=== PATIENT | male | born 1980 | race Caucasian/White ===

== ENCOUNTER 2018-12-25 22:49 | Emergency (ER) | payer MEDICAID, SELFPAY ==
[2018-12-25 22:50] VITALS: BP 164/115; PULSE 80; RESP 18; TEMP 36.8; O2SAT 97; BMI 32.3
--- NOTE | 2018-12-25 22:58 | EKG12_ITS ---
Test Reason : CP Blood Pressure : / mmHG Vent. Rate : 077 BPM Atrial Rate : 077 BPM P-R Int : 186 ms QRS Dur : 084 ms QT Int : 356 ms P-R-T Axes : 041 016 002 degrees QTc Int : 402 ms Normal sinus rhythm with sinus arrhythmia Normal ECG Confirmed by MINNA CHANDLER, LUCY ([id number]), news videotape editor AUGIE BENAVIDES ([id number]) on 12/29/2018 4:45:56 PM Referred By: UNQIUE Confirmed By:LUCY BUITRAGO MD
--- NOTE | 2018-12-25 23:00 | RAD_ITS ---
STUDY: X-RAY CHEST REASON FOR EXAM: Male, 38 years old. Chest pain TECHNIQUE: Single AP portable view of the chest. COMPARISON: None. FINDINGS: The lungs are clear and expanded. There is no demonstrated pleural abnormality. Normal size heart. Normal mediastinum and kenny. Normal visualized pulmonary arteries. Normal visualized aortic arch and descending thoracic aorta. Normal visualized thoracic spine. Normal visualized ribs, clavicles, and shoulders. There is no demonstrated abnormality of the visualized soft tissue structures of the upper abdomen. RAD/Chest 1 View (Portable) IMPRESSION: Normal x-ray examination of the chest. Electronically Signed: Lou Kingsley MD at 23:31 EST , Service support ,
[2018-12-25 23:08] LABS: Absolute Lymphocyte Count 2.67 X10^3/ul (0.83-4.51); Absolute Neutrophil Count 3.7 X10^3/uL (2.0-7.7); Basophil# 0.04 X10^3/uL; Basophil% 0.6 % (0-1); Eosinophil# 0.11 X10^3/uL; Eosinophils% 1.5 % (0-5); Hematocrit 46.5 % (40-54); Hemoglobin 15.6 g/dl (13.0-16.5); Lymphocyte # 2.67 X10^3/ul (4.0); Lymphocyte % 37.6 % (19-41); Mean Corp Hgb Conc 33.5 g/gl (32-36); Mean Corpuscular Hgb 27.3 pg (27.0-32.0); Mean Corpuscular Volume 81.3 fL (80-94); Mean Platelet Vol. 10.4 fl (6.2-12.0); Monocyte# 0.53 X10^3/uL; Monocyte% 7.5 % (0-10); Neutrophil # 3.71 X10^3/uL (2.7-7.7); Neutrophil % 52.2 % (47-70); Platelet Count 269 K/mm3 (150-450); RBC Distribution Width CV 13.2 % (11.6-14.6); Red Blood Count 5.72 M/mm3 (4.6-6.2); White Blood Count 7.1 K/mm3 (4.4-11.0)
[2018-12-25 23:09] LABS: POSITIVE COUNT NO; POSITIVE DIFFERENTIAL NO; POSITIVE MORPHOLOGY NO
[2018-12-25 23:27] LABS: ALB/GLOB Ratio 1.1 RATIO (0.9-2.4); AST(SGOT) 35 U/L (15-37); Alanine Aminotransfer ALT/SGPT 66 U/L (16-61); Albumin, Serum 4.2 g/dL (3.2-5.0); Alkaline Phosphatase 78 U/L (45-117); Anion Gap 9 (5-15); BUN 14 mg/dL (7-18); BUN/Creat Ratio 13.6 RATIO (10-20); Calcium,Total 9.1 mg/dL (8.5-10.1); Chloride 102 mmol/L (98-107); Creatinine, Serum 1.03 mg/dL (0.70-1.30); EST Glomerular Filtration Rate 87 mL/min (>60); Est Glom Filt Rate - Afr Amer 105 mL/min (>60); Estimated Creatinine Clearance 112.05 ml/min; Globulin 3.9 g/dL (2.2-4.2); Glucose 109 mg/dL (74-106); Lipase 80 U/L (73-393); Potassium 3.6 mmol/L (3.5-5.1); Protein, Total 8.1 g/dL (6.4-8.2); Sodium Level 141 mmol/L (136-145)
[2018-12-25 23:50] VITALS: BP 141/100; PULSE 72; RESP 13; O2SAT 97
--- NOTE | 2018-12-26 00:24 | ED.DCSUM_ITS ---
- ER Visit Summary Date of Service: 12/26/18 Chief Complaint: Chest pain History of Present Illness: The patient is a 38 M with chest pain that started at work tonight. He has been having this intermittently for several days. It feels like a stinging pain and it is in his left upper quadrant and subxiphoid area. Patient had similar symptoms in the past with reflux. Symptoms are worse with stress at work. He has a history of asthma, ear tubes. Denies alcohol or drugs. Denies any liver, gallbladder, pancreas issues. Denies any history of heart disease, PE, or dissection. Denies any respiratory symptoms. Physical Examination: Afebrile and vital signs unremarkable except for a blood pressure of 164/115. Patient is alert and oriented. No acute distress. Skin appears normal in color without pallor or diaphoresis. Heart regular rate and rhythm. Lungs clear bilaterally. Abdomen soft and nontender. Extremities normal. Test Results: EKG showed sinus rhythm at a rate of 77. Chest x-ray was normal. CBC normal. CMP normal except for glucose 109. Lipase normal. Troponin normal. Emergency Department Course and Treatment: Patient presents with chest pain. This is very atypical and he has no other associated symptoms. He is low risk. His workup here was unremarkable. He declined pain medicine. I suspect his pain may be from reflux, gastritis, or ulcer disease.. I have low suspicion for heart disease, PE, dissection. No further emergent or inpatient testing is indicated. He was discharged to follow-up with his primary doctor. Treatment Plan: As above Disposition: Discharge Impression: 1. Chest pain unclear etiology This note was generated with [employer] software. It may contain incorrect words, spelling, and punctuation that were not noted in review of the chart prior to signing ED Disposition - Plan for ED Patient: Referrals: Alex Masters MD [Primary Care Provider] -
--- NOTE | 2018-12-26 00:24 | ED.DEP ---
ED Disposition - Plan for ED Patient: Instructions: ED Chest Pain Atypical Unkn Cause Prescriptions: Omeprazole Magnesium [Prilosec Otc] 20 mg PO BID 30 Days #60 tablet.dr Referrals: Alex Masters MD [Primary Care Provider] -
[2018-12-26 00:30] VITALS: BP 141/99; PULSE 78; RESP 16; O2SAT 98
== END 2018-12-26 00:38 | disposition home or self-care (01) ==
PROVIDERS: Emergency Provider Emergency Medicine; Family Provider Family Medicine; PCP Family Medicine
DX: R07.9 Chest pain, unspecified (principal); J45.909 Unspecified asthma, uncomplicated; K21.9 Gastro-esophageal reflux disease without esophagitis
CPT/HCPCS: 71045; 80053; 83690; 84484; 85025; 93005; 99284; A4216

== ENCOUNTER 2019-08-26 05:57 | Day surgery (SDC) | payer MEDICAID, SELFPAY ==
[2019-08-24 14:46] VITALS: BMI 32.3
[2019-08-26] VITALS (10 sets, daily range): BP systolic 99–143; BP diastolic 59–87; PULSE 65–90; RESP 16–18; TEMP 36.1–36.7; O2SAT 92–98; BMI 32.3
[2019-08-26] MEDS: Lactated Ringers 1,000 ML 100 ML IV ×2 (06:53→09:01)
--- NOTE | 2019-08-26 07:10 | PCM.HP.BLA ---
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 Is patient in pain?: Yes (abdomen) Allergies tramadol Allergy (Verified 06/14/19 13:45) Shortness of breath Medications albuterol 90 mcg/actuation aerosol inhaler mcg INHALATION 08/24/19 [History] budesonide-formoterol HFA 80 mcg-4.5 mcg/actuation aerosol inhaler 2 puff INHALATION BID 08/24/19 [History Confirmed 08/24/19] PFS Medical History Asthma (Acute) Seasonal allergies (Acute) Surgical History S/P tube myringotomy (Acute) Family History Father Heart disease Social History (Updated 08/24/19 @ 15:16 by Nicholas Ellison MD) Smoking Status: Never smoker alcohol intake: never HPI HPI HPI: GABRIELLA BOSTON, is a 38 M who presents to the office today for HPI HPI Surgical H&P: Yes HPI: GABRIELLA BOSTON is a 38 M who presents to the office today for Ventral hernia. The patient has reported that about 6 weeks ago he was lifting something heavy and felt tearing in his abdomen. Ever since it is felt very tender and he is feeling bulging. He is unable to lift heavy weights without feeling pain. He had not had this anytime earlier in his life. ROS General General: No weight change or fatigue Cardio Cardiovascular: No murmur, pacemaker, heart disease, atrial fibrillation, high blood pressure, heart attack, heart stent, palpitations, shortness of breat with exertion or chest pain Psych Psychiatric: No depression or anxiety Resp Respiratory: No shortness of breath, No sleep apnea, No cough, No COPD, No asthma, No emphysema, No wheezing Gastro Gastrointestinal: Yes abdominal pain, No nausea or vomiting, No diarrhea, No constipation, No blood in stool, No acid reflux, No hemorrhoids, No ulcers, No gallbladder problem, No black,tarry stools Marcelino Hematologic: No blood thinners Exam Const General: cooperative Orientation: alert, oriented x3 Resp Effort & Inspection: normal respiratory effort Auscultation: clear to auscultation bilaterally Cardio Rate: regular rate Rhythm: regular rhythm Heart Sounds: no murmurs GI Inspection: non-distended Palpation: soft, nontender Other: The patient does appear to have a very small defect superior to the umbilicus. It is easily reducible. Assessment & Plan Problems 1. Ventral hernia without obstruction or gangrene K43.9 Plan The patient does appear to have a very small ventral hernia. It is reducible once he is laying down. It is noticeable when he coughs or does a Valsalva. I discussed hernia repair with him. He is unable to lift over 20 pounds that he would like it repaired. I discussed laparoscopic preperitoneal repair with him. I believe this will be the most durable repair. I discussed the back-up plan of intraperitoneal mesh. I discussed the risks of the procedure such as bleeding, infection, injury to bowel. Patient understands all the risks and is willing to proceed. Nicholas Ellison MD Pager: [facility] [address] [place] [address], [address] [place] [address] Office:
[2019-08-26] MEDS: Cefazolin 2 GM in 0.9% Normal Saline 100 ML IV (07:20)
[2019-08-26] MEDS: Bupivacaine 0.25%-Epi/Pf 1:200,000 OPERA.SITE (09:33)
--- NOTE | 2019-08-26 10:08 | PCM.OPRPT ---
Problem List (1) Ventral hernia Status: Acute Qualifiers: Obstruction and gangrene presence: without obstruction or gangrene Qualified Code(s): K43.9 - Ventral hernia without obstruction or gangrene Report of Operation Date of Procedure: 08/26/19 Pre-Operative Diagnosis: Ventral hernia Post-Operative Diagnosis: Same Surgery/Procedure Performed:: Laparoscopic ventral hernia repair with mesh Specimen's removed: None Description of Procedure: The patient was brought back to the operating room and general anesthesia was induced. The abdomen was prepped and draped in usual sterile fashion. An incision was made in the left upper quadrant and using a 5 mm port and Visiport technique the abdomen was entered and insufflated to 15 mmHg. The abdomen was inspected and there were no injuries from entry. Next under direct visualization the left lower quadrant 5 mm port and a left lateral 12 mm port were placed under direct visualization. The abdomen was inspected. There was dimpling in the peritoneum in the suspected area of hernia. Next the peritoneum was scored laterally and dissection was taken medially bluntly. Once the area superior to the umbilicus which was the area of the hernia was dissected free there were 2 defects in the anterior fascia with preperitoneal fat included in these defects. The preperitoneal fat was reduced and the dissection was taken further to the opposite direction to allow for adequate coverage of mesh. Next these 2 defects which measured approximately 1 cm each were each closed with an interrupted 0 Prolene suture. Next the defects were measured and a medium ventralex was selected. The medium ventral X was sutured to the anterior abdominal wall with a 2-0 Vicryl suture. Next the peritoneum was reapproximated with several V lock sutures to ensure that the mesh was adequately covered in the peritoneum did not have any defects. At the end of the procedure the mesh was completely covered with peritoneum. The ports were then removed and the 12 mm fascial defect was closed with an interrupted 0 Vicryl suture. All of the incisions were anesthetized and closed with interrupted 4-0 Monocryl sutures and Steri-Strips and bandages. Patient tolerated the procedure well. Grafts/Implants Used: Medium ventralex - Admit VTE Documentation VTE Mechan Device Prophylaxis: SCD's
--- NOTE | 2019-08-26 10:12 | DCINST_ITS ---
Discharge Diet: Light diet - advance as tolerated Discharge Activity: Return to Normal Activity, May Not Drive - for 2-3 days or while taking narcotic pain meds., May Shower - with the bandage in place 1-2 days after surgery. Lifting Restrictions: 20 pounds for 4 weeks. Additional Activity Instructions:: Climbing stairs is fine, walking is encouraged. Sitting in bed may be uncomfortable. Sitting up using your lateral muscles (sitting up sideways) is usually more comfortable. Do not drive, work heavy equipment of sign legal documents for 24 hours. Pain medications may cause nausea, you should typically eat light foods as you take your pain medications. Pain medications may also cause constipation. If you have difficulty with this, discuss with your doctor. Call your doctor if your incision/area has: Continuous Slow Oozing, Sudden Increased Bleeding, Increased Pain/ Swelling, Increased Redness, Foul Smelling Discharge Call your doctor if you observe: Fever of 101 or Higher Suture Line Care: Avoid Pulling/Pushing, Avoid Pinching/Bending Change Dressing in (Days):: 3 - Leave steri-strips for 1 week. May protect with a guaze bandaid. Cleanse incision/area with: Keep Dressing Clean & Dry Additional Instructions: Take tylenol and ibuprofen alternating for pain. Allergies/Adverse Reactions: Allergies tramadol Allergy (Verified 08/26/19 06:24) Shortness of breath Medications to take at Discharge albuterol 90 mcg/actuation aerosol inhaler 1 puff INHALATION PRN PRN 08/24/19 budesonide-formoterol HFA 80 mcg-4.5 mcg/actuation aerosol inhaler 2 puff INHALATION BID 08/24/19 Primary Care Physician: Alex Masters MD [Primary Care Provider] - Test Results: Test results from this visit will be discussed in further detail at your follow- up appointment, if applicable. Please Follow Up With: Nicholas Ellison MD When: Please call to schedule 2 week follow up appointment. [phone]
== END 2019-08-26 14:23 | disposition home or self-care (01) ==
LOC: SDC 05:59 → AC 06:00
PROVIDERS: Family Provider Family Medicine; PCP Family Medicine; Referring Provider Surgery; Visit Provider Surgery
PROC: 0WQF4ZZ Repair Abdominal Wall, Percutaneous Endoscopic Approach (ICD-10-PCS; CPT 49652; principal; 2019-08-26 07:10)
DX: K43.9 Ventral hernia without obstruction or gangrene (principal); J45.909 Unspecified asthma, uncomplicated; K21.9 Gastro-esophageal reflux disease without esophagitis; Z88.8 Allergy status to other drugs, medicaments and biological substances
CPT/HCPCS: 49652; C1781; J7120; J2405; J3475

== ENCOUNTER 2019-11-11 21:20 | Emergency (ER) | payer MEDICAID, SELFPAY ==
[2019-08-26 06:26] VITALS: BMI 32.3
[2019-11-11 21:21] VITALS: BP 162/102; PULSE 109; RESP 18; TEMP 36.8; O2SAT 97; BMI 32.1
--- NOTE | 2019-11-11 21:31 | ED.DCSUM_ITS ---
History of Present Illness Chief Complaint: Asthma Informant: Patient Onset: Days Context: Gradual Onset Current Severity: Mild Maximum Severity: Moderate Narrative: Patient presents with asthma exacerbation. He reports having URI symptoms the last 4 days or so. Yesterday he started noticing increased wheezing. He states his Ventolin is not really helping. He does have cough but no fever. Patient also noted what he thought might be a spider bite on his abdomen 2 days ago. He is not sure if it is related to his current illness. He states it did get larger and more red in color today. - Past Medical History (1) Abscess Status: Chronic (2) Ventral hernia Status: Chronic Past Medical History - Allergies and Home Meds Allergies/Adverse Reactions: Allergies tramadol Allergy (Verified 11/11/19 21:22) Shortness of breath Primary Care Physician: Alex Masters MD [Primary Care Provider] - Prior records reviewed: Yes Smoking Status: Never smoker Review of Systems General: Denies: Chills, Fever Eyes: Denies: Visual changes - bilaterally ENT: Denies: Bilateral ear pain Cardiovascular: Denies: Chest pain, Palpitations Respiratory: Reports: Dyspnea, Cough Gastrointestinal: Denies: Abdominal pain, Nausea, Vomiting, Diarrhea Musculoskeletal: Denies: Swelling, Extremity Pain Skin: Reports: Abscess Neurological: Denies: Headache Allergy: Denies: Uticaria Physical Exam Vital Signs/Narrative: Vital Signs Temp Pulse Resp BP Pulse Ox 11/11/19 21:21 98.3 F 109 H 18 162/102 H 97 Inital Vital Signs reviewed: Yes General: Well nourished, Well developed Head: Normocephalic ENT: Moist mucous membranes Neck: Supple Cardiovascular: Regular rate, Regular rhythm Respiratory: No distress, - - Minutes air movement throughout. Abdomen: Soft, Nontender Skin: - - Patient is a small area of folliculitis over the upper abdomen. No fluctuance noted. Neurological: Alert, Oriented x3 Psychological: Normal affect Diagnostic/Tx/Re-eval - Medical Decision Making Patient was given p.o. prednisone and aerosol treatments. On repeat evaluation he does have some improved air movement. He has albuterol at home to use. He will be given prednisone as well as doxycycline. Doxycycline will cover both lungs as well as the folliculitis with localized infection on his abdomen. ED Disposition - Plan for ED Patient: Disposition: Home or Assisted Living Diagnosis: Asthma, Viral URI, Abscess Instructions: ASTHMA, Acute (Adult), URI, Viral w/ Wheezing (Adult), ABSCESS, Antiobiotic Treatment Only Prescriptions: Prednisone [Deltasone] 40 mg PO DAILY #10 tab Transmission Status: Pending to [id number] Doxycycline 100 mg PO BID #20 cap Transmission Status: Pending to [id number] Referrals: Alex Masters MD [Primary Care Provider] - 3-5 Days if not improving
[2019-11-11] MEDS: predniSONE 20 MG Tablet 60 MG PO (21:39)
[2019-11-11 21:40] VITALS: PULSE 116; RESP 20; O2SAT 96
[2019-11-11] MEDS: Ipratropium/Albuterol Sulfate 3 ML AMPUL.NEB INHALATION (21:40)
[2019-11-11] MEDS: Albuterol 2.5 MG/3 ML VIAL.NEB. INHALATION ×2 (21:50)
[2019-11-11] MEDS: Doxycycline 100 MG CAPSULE PO (22:50)
== END 2019-11-11 22:52 | disposition home or self-care (01) ==
PROVIDERS: Emergency Provider Emergency Medicine; Family Provider Family Medicine; PCP Family Medicine
DX: J45.901 Unspecified asthma with (acute) exacerbation (principal); J06.9 Acute upper respiratory infection, unspecified; L02.211 Cutaneous abscess of abdominal wall; Z88.5 Allergy status to narcotic agent
CPT/HCPCS: 94640; 99251; 99283; G0463

== ENCOUNTER 2021-01-10 15:23 | Emergency (ER) | payer MEDICAID, SELFPAY ==
[2021-01-10 15:23] VITALS: BP 158/121; PULSE 88; RESP 16; TEMP 36.4; O2SAT 98; BMI 29.0
--- NOTE | 2021-01-10 15:36 | EKG12_ITS ---
Test Reason : CP Blood Pressure : / mmHG Vent. Rate : 089 BPM Atrial Rate : 089 BPM P-R Int : 176 ms QRS Dur : 074 ms QT Int : 350 ms P-R-T Axes : 054 046 050 degrees QTc Int : 425 ms Normal sinus rhythm Normal ECG Confirmed by SAUMYA CHANDLER, PASTOR ([id number]), race starter PRITI GARRETT ([id number]) on 01/15/2021 10:11:37 A M Referred By: KRISTY Confirmed By:IMAN KERNS MD
--- NOTE | 2021-01-10 15:37 | ED.DCSUM_ITS ---
- ER Visit Summary Date of Service: 01/10/21 Chief Complaint: [Chest pain] History of Present Illness: The patient is a 40 M [resents to the emergency department complaint of chest pain that started 3 days ago. Patient states that initially 3 days ago he noticed discomfort while walking in his left upper a bdomen. Patient's had some intermittent discomfort in the abdomen and has history of a ventral hernia repair with mesh and felt that maybe he tore that side when working out so he saw his surgeon a month ago. Patient states that the pain now does not seem to be in his abdomen any longer but seems to have migrated up towards his chest. He describes pain over his heart. He has a sharp stabbing pain intermittently that seems to emanate in the abdomen and shoot up into his chest and into his shoulders. He denies any nausea or vomiting. He denies shortness of breath. He denies diaphoresis. Patient does have history of asthma. There is no family history of heart disease. No family history of Marfan syndrome or sudden cardiac . Patient has never had a blood clot in his legs or lungs. She denies recent illness. Patient denies Covid exposures.] Physical Examination: [HEENT-PERRLA, EOMI. Cranial nerves II through XII grossly intact. TMs clear. Mucous membranes moist. No adenopathy. Cardiovascular-regular rate and rhythm without murmur or ectopy Lungs-clear to auscultation, chest wall stable without crepitus or subcu emphysema. No chest wall tenderness on exam. Abdomen-normoactive bowel sounds, soft, nontender, no rebound or rigidity, no peritoneal signs. Extremities-intact ?4, normal range of motion, normal pulses, atraumatic] Test Results: [EKG obtained arrival shows sinus rhythm with a ventricular rate of 89 bpm with no acute ST segment changes. CBC with it was normal. Chemistries unremarkable. Glucose was slightly elevated 173. Troponin was less than 0.015. D-dimer was less than 0.27. Chest x-ray and 1 view obtained interpreted by myself as no acute disease process. Radiology felt the x-ray looked normal as well.] Emergency Department Course and Treatment: [ IV established on arrival. Patient was given 4 baby aspirin.] Treatment Plan: [Patient to follow-up with his surgeon and he actually has an upper scope scheduled for this month on the . Patient does not anything for pain. I do not feel his symptoms are cardiac in nature. Patient is adamant that the pain originates in his abdomen and he does not have a surgical abdomen at this time and will feel any further imaging is indicated. We discussed possibility of scar tissue or adhesions related to his hernia repair and mesh.] Disposition: [Discharged home in stable condition] Impression: [Chest pain-etiology uncertain Abdominal pain-etiology uncertain] This note was generated with [email or web address] dictation software. It may contain incorrect words, spelling, and punctuation that were not noted in review of the chart prior to signing ED Disposition - Plan for ED Patient: Referrals: Alex Masters MD [Primary Care Provider] -
[2021-01-10 15:38] VITALS: O2SAT 96
--- NOTE | 2021-01-10 15:38 | RAD_ITS ---
STUDY: X-RAY CHEST REASON FOR EXAM: Male, 40 years old. chest pain TECHNIQUE: Single AP portable view of the chest. COMPARISON: None. FINDINGS: The lungs are clear and expanded. There is no demonstrated pleural abnormality. Normal size heart. Normal mediastinum and kenny. Normal visualized pulmonary arteries. Normal visualized aortic arch and descending thoracic aorta. Normal visualized thoracic spine. Normal visualized ribs, clavicles, and shoulders. There is no demonstrated abnormality of the visualized soft tissue structures of the upper abdomen. RAD/Chest 1 View (Portable) IMPRESSION: Normal x-ray examination of the chest. Electronically Signed: Mulugeta Cisse MD at 16:19 EST Tel , Service support ,
[2021-01-10] MEDS: Aspirin 81 MG TAB.CHEW 324 MG PO (15:40)
[2021-01-10] MEDS: 0.9% Normal Saline 1,000 ML 150 ML IV (16:00)
[2021-01-10 16:18] LABS: Absolute Lymphocyte Count 2.11 X10^3/uL (0.83-4.51); Absolute Neutrophil Count 5.1 X10^3/uL (2.0-7.7); Basophil# 0.05 X10^3/uL; Basophil% 0.6 % (0-1); Eosinophil# 0.07 X10^3/uL; Eosinophils% 0.9 % (0-5); Hematocrit 52.1 % (40-54); Hemoglobin 17.3 g/dL (13.0-16.5); Lymphocyte # 2.11 X10^3/ul (4.0); Lymphocyte % 27.1 % (19-41); Mean Corp Hgb Conc 33.2 g/dL (32-36); Mean Corpuscular Hgb 26.6 pg (27.0-32.0); Mean Platelet Vol. 10.5 fl (6.2-12.0); Monocyte% 6.4 % (0-10); NRBC Flagged by Analyzer 0 % (0-5); Neutrophil # 5.05 X10^3/uL (2.7-7.7); Neutrophil % 64.7 % (47-70); Platelet Count 306 K/mm3 (150-450); RBC Distribution Width CV 12.7 % (11.6-14.6); RBC Distribution Width SD 36.2 fl (35.1-43.9); Red Blood Count 6.51 M/mm3 (4.6-6.2); White Blood Count 7.8 K/mm3 (4.4-11.0)
[2021-01-10 16:38] LABS: Anion Gap 6 (5-15); BUN 13 mg/dL (7-18); BUN/Creat Ratio 14.4 RATIO (10-20); Calcium,Total 9.8 mg/dL (8.5-10.1); Chloride 102 mmol/L (98-107); EST Glomerular Filtration Rate 100 mL/min (>60); Est Glom Filt Rate - Afr Amer 121 mL/min (>60); Estimated Creatinine Clearance 125.77 ml/min; Glucose 173 mg/dL (74-106); Sodium Level 137 mmol/L (136-145)
[2021-01-10 16:40] LABS: D-Dimer Quantitative (DVT/PE) < 0.27 FEU/ug/m (0.27-0.49)
--- NOTE | 2021-01-10 16:54 | DCINST.ED_ITS ---
ED Disposition - Plan for ED Patient: Instructions: ED Chest Pain, Uncertain Cause, Abdominal Pain Referrals: Alex Masters MD [Primary Care Provider] - iNcholas Ellison MD [STAFF PHYSICIAN] - 5-7 Days
--- NOTE | 2021-01-10 16:54 | ED.DEP ---
ED Disposition - Plan for ED Patient: Instructions: ED Chest Pain, Uncertain Cause, Abdominal Pain Referrals: Alex Masters MD [Primary Care Provider] - Nicholas Ellison MD [STAFF PHYSICIAN] - 5-7 Days
[2021-01-10 17:03] VITALS: BP 117/62; PULSE 64; RESP 15; O2SAT 97
== END 2021-01-10 17:05 | disposition home or self-care (01) ==
LOC: ED 16:08
PROVIDERS: Emergency Provider Emergency Medicine; PCP Family Medicine
DX: R07.9 Chest pain, unspecified (principal); R10.9 Unspecified abdominal pain; R73.9 Hyperglycemia, unspecified; J45.909 Unspecified asthma, uncomplicated
CPT/HCPCS: 71045; 80048; 84484; 85025; 85379; 93005; 96360; 99285; J7030; A4216

== ENCOUNTER → 2021-01-12 07:26 | Outpatient (CLI) | payer MEDICAID, SELFPAY ==
[2021-01-10 15:23] VITALS: BMI 29.0
--- NOTE | 2021-01-12 07:31 | US_ITS ---
STUDY: ABDOMINAL ULTRASOUND - RIGHT UPPER QUADRANT REASON FOR VISIT: Male, 40 years old Epigastric pain TECHNIQUE: Ultrasound evaluation of the right upper quadrant was performed with real-time and static silva-scale imaging. TECHNICAL QUALITY: Adequate. COMPARISON: None. FINDINGS: Liver: The liver measures 17.4 cm. There is normal echogenicity of the liver. The bile ducts are within normal limits. There is hepatic color flow. The direction of portal flow is hepatopetal. There is no demonstrated mass lesion. Gallbladder: Normal distended gallbladder. The gallbladder wall measures 2 mm. There is a negative sonographic Queen''s sign. There is no pericholecystic fluid. There are no gallstones. Common Bile Duct (C.B.D.): The common bile duct measures 4 mm. Pancreas: Normal size of the head, body and tail of the pancreas. There is normal echogenicity of the pancreas. There is no demonstrated pancreatic mass or cyst. Right Kidney: Normal size of the right kidney. The right kidney measures 10.8 cm. Normal renal cortex. The right cortex measures 1.9 cm. There is no demonstrated renal mass or cyst. There is no right hydronephrosis. US/Gallbladder IMPRESSION: Fatty infiltration of the liver. No gallstones or biliary dilatation. Electronically Signed: Meek Pond MD at 11:40 EST , Service support ,
== END ==
PROVIDERS: PCP Family Medicine; Referring Provider Surgery; Visit Provider Surgery
DX: R10.13 Epigastric pain (principal); R10.9 Unspecified abdominal pain
CPT/HCPCS: 76705

== ENCOUNTER 2021-01-23 07:20 | Day surgery (SDC) | payer MEDICAID, SELFPAY ==
[2021-01-23 07:41] VITALS: BP 132/91; PULSE 76; RESP 20; TEMP 36.6; O2SAT 100; BMI 29.0
[2021-01-23] MEDS: Lactated Ringers 1,000 ML 100 ML IV (07:50)
--- NOTE | 2021-01-23 08:13 | HP.PCM_ITS ---
History of Present Illness Date of Admission: 01/23/21 The patient is a 40 year old M presented to the office with upper abdominal pain. The patient had a history of ventral hernia repair and believes it was related to this. The patient is complaining of a lot of abdominal pain in the upper area especially the left upper quadrant. The patient has tried PPI and Carafate with no resolution. Past Medical/Surgical History - Planned Operation Planned Operative Procedure/s: egd Date of Operative Procedure: 01/23/21 Permit Signed: No S.O.S: No Is This Patient Having a Total Joint: No - Previous Hospitalizations/Surgeries HX Hospitalizations: No HX of Surgeries: ear tubes as child. back injection 2009. ventral hernia repair 2019 Any Problems With Anesthesia: No You/Your Family Experience Fever (Hyperthermia) With Anes: No Cholinesterase deficiency: No - Cardiovascular Hx Chest Pain within Last 2 months: Yes - discomfort d/t epigastric/left shoulder Hx of Irregular Heartbeat and/or Afib: No Hx Heart Attack: No Hx Congestive Heart Failure: No Hx Rheumatic Fever: No Hx Hypertension: No Hx Internal Defibrillator: No Hx Pacemaker: No Hx Cardiac Catheterization: No Hx Cardiac Surgery/Stents/Etc.: No Hx Stress Test: No HX Edema: No Hx Pain in Legs when Walking/Leg Cramps: No - Respiratory Chronic Cough: No HX of Shortness of Breath: No - denies Hoarseness: No Hx Chronic Obstructive Pulmonary Disease (COPD): No Hx Asthma: Yes - inhaler daily Hx Emphysema: No Hx Sleep Apnea: No Hx Oxygen Use at Home: No Hx Respiratory Tract Infection/Cold (presently): No Do You Snore Loudly (louder than talking or can be heard): No Do You Often Feel Tired/ Fatigued/ Sleepy Dring Daytime?: Yes Has Anyone Observed You Stop Breathing During Sleep?: No Result (for STOP score): Negative Hx Smoking: No Smoking Status: Never smoker - Gastrointestinal Hx Gastroesophageal Reflux: No - nausea,abominal gas pain Controlled With Meds: - . Hx Gastrointestinal Disorders: No Hx Gastrointestinal Bleed: No Hx Ulcer: No Hx Hiatal Hernia: No Difficulty Chewing/Swallowing: No Recent Onset of Swallowing Problems: No Special diet followed at home: No Hx Unplanned Weight Loss of 20#: No HX Unplanned Weight Gain of 20#: No - Neurological Hx Seizures: No HX Syncope/Blackout Spells/Unconsciousness: No Hx CVA/Stroke: No Hx Transient Ischemic Attacks (TIA): No Hx Multiple Sclerosis: No Hx Parkinson's Disease: No Hx Head/Neck Injury: No Hx Headaches: Yes - occ Hx Back Injury/Pain: Yes - back pain,scoliosis per hx Recent Onset of Speech Difficulty: No Restless Legs: No Does patient have nerve stimulator: No Patient instructed to have device shut off: No Rep notified?: No - Blood Disorder Hx Leukemia: No Bleeding Tendencies: No Hx Deep Vein Thrombosis: No Hx High Cholesterol: No Blood Transmitted Disease: No Hx Hepatitis: No Hx Cirrhosis: No Hx Anemia: No Hx Blood Disorders: No - Genitourinary Hx Renal Disease: No - Musculoskeletal Hx Arthritis: No Hx Rheumatoid Arthritis: No Hx Gout: No Recent Onset of an Orthopedic Problem: No - Endocrine Hx Diabetes: No Thyroid Disease: No Hx Steroid Therapy: No - Psycho/Social Hx Substance Use: Yes - drug use 5 yrs ago Hx Alcohol Use: No Hx Anxiety: No Hx Depression: No Mental Illness: No Hx Dementia: No - Miscellaneous Hx Cancer: No Recent Exposure to Contagious Disease: No Active MRSA: No Hx of C-Diff: No Any Loose Teeth: No Allergies tramadol Allergy (Verified 01/18/21 13:44) Shortness of breath - Discharge Is Pt Admitted From a Skilled Nursing, or a Alf: No After D/C, Where Do you Plan to Go: Return Home - Physical Exam Vitals/I&O's: Vital Signs Temp Pulse Resp BP Pulse Ox 97.8 F 76 20 H 132/91 H 100 01/23/21 07:41 01/23/21 07:41 01/23/21 07:41 01/23/21 07:41 01/23/21 07:41 Oxygen Delivery Method Room Air Weight: 220 lb 3.869 oz Body Mass Index (BMI) 29.0 General: Alert, Oriented x3 Lungs: Normal air movement Cardiovascular: Regular rate, Regular Rhythm Abdomen: Soft, Non-Distended Microbiology Past 72 Hours 01/22/21 09:40 Interface Orders SARS-CoV-2 Antigen (Rapid) - Final Current Medications Lactated Ringer's () 1,000 mls @ 100 mls/hr IV .Q10H COURTNEY Last Admin: 01/23/21 07:50 Dose: 100 mls/hr Documented by: Assessment/Plan 40-year-old male with abdominal pain 1. Patient is having upper abdominal pain. He had a CT scan which was essentially normal. Patient also had a gallbladder ultrasound which was normal. He was started on a PPI and Carafate which did not help. I recommended EGD to evaluate the stomach lining. I explained endoscopy in detail to the patient. I explained the risks including but not limited to stroke or heart attack with anesthesia, perforation of the GI tract, bleeding, infection. I explained that any of these could necessitate further emergency surgery. The patient understands and all questions were answered sufficiently. The patient wishes to proceed with procedure. Nicholas Ellison MD Pager: [facility] [address] [place] [address] [address] [place] [address] Office: Surgery Risks - Colonoscopy Risks Include but are not Limited To: Risks include but are not limited to: Bleeding, perforation requiring further surgery, inability to complete colonoscopy requiring barium enema.
--- NOTE | 2021-01-23 08:30 | GASB_PTH ---
PATIENT: GABRIELLA BOSTON LOC: EN U#:[id number] AGE/SX: 40/M ROOM: RE01/23/[address]: Dr. Nicholas Ellison MD : 1980 BED: DIS: 01/23/2021 SPEC #: [id number] RECD: 01/23/21 11:09 STATUS: REEMA RE #: [id number] MYESHA: 01/23/21 08:[address]: Nicholas Ellison DEPT: SURGICAL PATHOLOGY RECD BY: Sharon Baum ENTERED: 01/23/21 12:45 SP TYPE: Gastric Bx OTHR DR: Dr. Alex Masters MD Tissues: Gastric mucous membrane Procedures: Surgery Specimen Level IV HEADER OPERATION: EGD ([facility] [place]) PRE-OP DIAGNOSIS: Upper abdominal pain TISSUE SUBMITTED: Antrum biopsy for H. pylori and path MICROSCOPIC DIAGNOSIS Antrum biopsy: Mild gastritis. See microscopic description and comment. SJ:justin 01/24/2021 COMMENT The results of immunohistochemistry for Helicobacter pylori will be reported separately ([id number]). MICROSCOPIC DESCRIPTION Slides are reviewed. The specimen shows fragments of gastric mucosa with chronic inflammatory cell infiltrates in the lamina propria consisting of lymphocytes and plasma cells, consistent with mild chronic gastritis. GROSS DESCRIPTION Received in fixative is one container labeled with the patient's name and designated antral biopsy. The specimen consists of two irregular fragments of light vargas soft tissue that in aggregate measure 0.6 x 0.3 x 0.1 cm. The specimen is totally submitted in one cassette. / ZEUS:justin 01/23/21 TC:3 CPT: 16444
--- NOTE | 2021-01-23 08:30 | IMM_PTH ---
PATIENT: GABRIELLA BOSTON LOC: EN U#:[id number] AGE/SX: 40/M ROOM: RE01/23/[address]: Dr. Nicholas Ellison MD : 1980 BED: DIS: 01/23/2021 SPEC #: [id number] RECD: 01/23/21 13:32 STATUS: REEMA REQ #: [id number] MYESHA: 01/23/21 08:[address]: Nicholas Ellison DEPT: IMMUNOHISTOCHEMISTRY RECD BY: Angelita Burnette ENTERED: 01/23/21 13:33 SP TYPE: IMMUNO OTHR DR: Dr. Alex Masters MD Tissues: Stomach, NOS Procedures: H Pylori (initial) PHYSICIAN & [place] [id number] SPECIMEN INFORMATION: Tissue Source: Antrum biopsy Clinical Info: Upper abdominal pain Specimen Number: [id number] CPT code: 24762 METHODOLOGY: Deparaffinized sections of prefer/formalin-fixed tissue or PAP/DQ stained slides are incubated with monoclonal/polyclonal antibodies/oligonucleotide probes. Localization is made via biotin free immunoperoxidase method. Appropriate controls are performed and reacted as expected. Results on target cell population are indicated in the following table: RESULTS: ANTIBODY / CLONE RESULT H Pylori (polyclonal) negative These tests were developed and their performance characteristics determined by [facility]. They may not have been cleared or approved by the U.S. Food and Drug Administration. The FDA has determined that such clearance or approval is not necessary. INTERPRETATION: Antrum, biopsy: Negative for Helicobacter pylori organisms. ZEUS:justin 01/24/2021
--- NOTE | 2021-01-23 08:32 | OP.CCLET_ITS ---
01/23/2021 Alex Masters Re : Upper GI endoscopy procedure for Nathan Bustos Dear Guerrero This procedure was performed on Saturday, January 23, 2021. My impressions and recommendations are as follows: Impressions : - Normal esophagus. - Normal stomach. - Normal examined duodenum. - Biopsies were taken with a cold forceps for Helicobacter pylori testing. Recommendations : - Await pathology results. - Discharge patient to home. - Resume previous diet. - Continue present medications. - Perform a HIDA (hepatobiliary iminodiacetic acid) scan at appointment to be scheduled. My findings are described in the full procedure note, which is enclosed. If I can be of further assistance, please feel free to contact me at Doctor phone number(s): , Work: . Sincerely, Nicholas Ellison MD 01/23/2021 8:31:39 AM This report has been signed electronically.
--- NOTE | 2021-01-23 08:32 | OP.EGD_ITS ---
Patient Name: Nathan Bustos Procedure Date: 01/23/2021 8:18 AM Date of : 1980 Age: 40 Procedure: Upper GI endoscopy Indications: Epigastric abdominal pain, Abdominal pain in the left upper quadrant Providers: Nicholas Ellison MD Referring MD: Alex Masters Medicines: Monitored Anesthesia Care Patient Profile: This is a 40 year old male. Refer to note in patient chart for documentation of history and physical. Complications: No immediate complications. Estimated blood loss: Minimal. Procedure: Pre-Anesthesia Assessment: - Prior to the procedure, a History and Physical was performed, and patient medications and allergies were reviewed. The patient's tolerance of previous anesthesia was also reviewed. The risks and benefits of the procedure and the sedation options and risks were discussed with the patient. All questions were answered, and informed consent was obtained. Prior Anticoagulants: The patient has taken no previous anticoagulant or antiplatelet agents. After reviewing the risks and benefits, the patient was deemed in satisfactory condition to undergo the procedure. After obtaining informed consent, the endoscope was passed under direct vision. Throughout the procedure, the patient's blood pressure, pulse, and oxygen saturations were monitored continuously. The gastroscope was introduced through the mouth, and advanced to the second part of duodenum. The upper GI endoscopy was accomplished without difficulty. The patient tolerated the procedure well. Scope In: 8:26:43 AM Scope Out: 8:28:50 AM Total Procedure Duration Time 0 hours 2 minutes 7 seconds Findings: The esophagus was normal. The stomach was normal. The examined duodenum was normal. Biopsies were taken with a cold forceps in the gastric antrum for Helicobacter pylori testing. Impression: - Normal esophagus. - Normal stomach. - Normal examined duodenum. - Biopsies were taken with a cold forceps for Helicobacter pylori testing. Recommendation: - Await pathology results. - Discharge patient to home. - Resume previous diet. - Continue present medications. - Perform a HIDA (hepatobiliary iminodiacetic acid) scan at appointment to be scheduled. Procedure Code(s): --- Professional --- 59411, Esophagogastroduodenoscopy, flexible, transoral; with biopsy, single or multiple Diagnosis Code(s): --- Professional --- R10.13, Epigastric pain R10.12, Left upper quadrant pain CPT copyright 2017 [employer]. All rights reserved. The codes documented in this report are preliminary and upon chipper feeder review may be revised to meet current compliance requirements. Nicholas Ellison MD 01/23/2021 8:31:39 AM This report has been signed electronically. Number of Addenda: 0 Note Initiated On: 01/23/2021 8:18 AM
[2021-01-23 08:35] VITALS: BP 130/90; BP 132/91; PULSE 73; RESP 16; TEMP 37; O2SAT 96
[2021-01-23 08:40] VITALS: BP 132/91; BP 134/91; PULSE 72; RESP 16; O2SAT 96
[2021-01-23 08:45] VITALS: BP 122/95; BP 132/91; PULSE 70; RESP 16; O2SAT 94
[2021-01-23 08:50] VITALS: BP 130/96; BP 132/91; PULSE 71; RESP 16; TEMP 36.6; O2SAT 97
[2021-01-23 09:17] VITALS: BP 132/91
== END 2021-01-23 09:27 | disposition home or self-care (01) ==
LOC: EN 07:20 → AC 07:20
PROVIDERS: PCP Family Medicine; Referring Provider Family Medicine; Visit Provider Surgery
PROC: 0DJ08ZZ Inspection of Upper Intestinal Tract, Via Natural or Artificial Opening Endoscopic (ICD-10-PCS; CPT 43235; principal; 2021-01-23 08:25)
DX: R10.13 Epigastric pain (principal); R10.12 Left upper quadrant pain; Z20.822 Contact with and (suspected) exposure to COVID-19; J45.909 Unspecified asthma, uncomplicated
CPT/HCPCS: 43239; 87426; 88305; 88342; C9803; J7120

== ENCOUNTER → 2021-01-30 10:21 | Outpatient (CLI) | payer MEDICAID, SELFPAY ==
[2021-01-23 07:41] VITALS: BMI 29.0
--- NOTE | 2021-01-30 10:24 | NM_ITS ---
CLINICAL: 40-year-old male with reported history of epigastric pain. RADIONUCLIDE HEPATOBILIARY SCINTIGRAPHY COMPARISON: Abdominal ultrasound report 01/12/2021 FINDINGS: Following the intravenous administration of 5.3 mCi of 99m Tc Mebrofenin, hepatobiliary images reveal: 1. Relatively prompt and homogeneous radiopharmaceutical concentration is noted by a normal sized liver. No parenchymal defects are identified. 2. Gallbladder activity is identified at 10 minutes post radiopharmaceutical administration. 3. Small intestinal tract is observed at 15 minutes following tracer injection. 4. Washout of the radiopharmaceutical by the hepatic parenchyma appears qualitatively normal. Cholecystokinin (0.02 ug/kg) was administered intravenously over a 30-minute period. The post CCK gallbladder ejection fraction calculated at 20 minutes following Cholecystokinin administration was noted to be 28.0 % (normal greater than 35%). There is scintigraphic evidence of post cholecystokinin duodenal-gastric reflux. DE/Hepatobilliary Img w/Pharm Int IMPRESSION: 1. ABNORMAL 99m Tc Mebrofenin hepatobiliary imaging examination with Cholecystokinin. A. A gallbladder ejection fraction calculated to be less than 35% following the administration of Cholecystokinin is consistent with the presence of functional hepatobiliary disease (gallbladder and/or sphincter of Oddi dyskinesia) and/or organic hepatobiliary disease (chronic acalculous cholecystitis and/or cystic duct syndrome) in patients with intermediate to high pretest probabilities of hepatobiliary illness. (Virgilio Finley et al, Journal of Nuclear Medicine 32:1695, 1990). B. There is scintigraphic evidence of post CCK duodenal-gastric reflux as delineated above. (Braxton et al, Nucl Med Isamar Lita Press pg. 35, 1980). Electronically Signed: Monty Garcia DO at 22:12 EDT Tel , Service support ,
== END ==
PROVIDERS: PCP Family Medicine; Referring Provider Surgery; Visit Provider Surgery
DX: R10.12 Left upper quadrant pain (principal); R10.13 Epigastric pain
CPT/HCPCS: 78227; A9537; J2805

== ENCOUNTER 2021-11-15 11:03 | Emergency (ER) | payer OTHER, MEDICAID, SELFPAY ==
[2021-11-15 11:03] VITALS: BP 192/124; PULSE 72; RESP 14; TEMP 36.3; O2SAT 99; BMI 28.5
--- NOTE | 2021-11-15 11:18 | EX.ED.DYSGE1 ---
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 He has had this reaction multiple times after being exposed to the same strip cleaner. Yesterday he was at work from -, someone else was using that and he could smell the strip cleaner through the duct work, he was not using it directly. He woke up this morning with mild asthma symptoms, tightening/swelling in both hands and his face/lips. He denies any trouble swallowing. He has not used any medications although he does have Benadryl and albuterol inhaler at home. Denies any chest tightness, presyncope, syncope, palpitations. States has had the same symptoms before with prior exposures to the same strip cleaner. [facility] Medical History (Updated 11/15/21 @ 11:[address] Meek Ruelas MD) Asthma Seasonal allergies Home Medications albuterol 90 mcg/actuation aerosol inhaler 1 puff INHALATION PRN PRN 08/24/19 [History Last Taken Unknown] budesonide-formoterol HFA 160 mcg-4.5 mcg/actuation aerosol inhaler 2 inh INHALATION BID gm 12/11/20 [History Last Taken Unknown] Allergy/AdvReac Type Severity Reaction Status Date / Time tramadol Allergy Shortness Verified 11/15/21 11:06 of breath Family History Father Heart disease Surgical History S/P tube myringotomy S/P ventral herniorrhaphy Social History Smoking Status: Never smoker alcohol intake: never ROS ROS ED Constitutional Constitutional ED: Denies chills or fever(s) Eyes Eyes: Denies change in vision or diplopia ENT ENT ED: Reports lip swelling; Denies rhinorrhea, sore throat, throat swelling or tongue swelling Cardiovascular Cardiovascular: Denies chest pain or palpitations Respiratory/Chest Respiratory/Chest: Denies cough Gastrointestinal Gastrointestinal: Denies abdominal pain, diarrhea, nausea or vomiting Genitourinary Genitourinary ED: Denies dysuria or hematuria Musculoskeletal Musculoskeletal: Reports other Details: Hands feel swollen and tight ; Denies back pain or neck pain Integumentary Denies abscess or rash Neurologic Neurologic: Denies headache(s), paresthesias or weakness Psychiatric Psychiatric: Denies anxiety or suicidal thoughts EXAM Physical Exam Const Vital Signs: 11/15/21 11:03 Temperature 97.4 F L Temperature Source Temporal Pulse Rate 72 Respiratory Rate 14 Blood Pressure 192/124 H Blood Pressure Mean 146 Pulse Ox 99 Oxygen Delivery Method Room Air Positive well nourished and well developed General Appearance ED: well developed and NAD HEENT Reports moist mucous membranes HEENT Narrative: No evidence of tongue, lip, facial swelling objectively. Normal speech. Normal oropharynx. normocephalic and atraumatic Eyes PERRL and EOMs intact bilaterally Neck full ROM and supple Resp normal respiratory effort and clear to auscultation bilaterally Cardio regular rate, regular rhythm and no murmurs Back/Spine no CVA tenderness General Back: other FROM Extremity normal to inspection Extremity Narrative: Full range of motion of all fingers, no erythema or objective focal swelling General Extremety ED: Negative for edema, pulses abnormal or tenderness General Extremity: Negative for edema or pulses abnormal Neuro oriented x3, CN's II-XII intact bilaterally and no sensory deficits noted Sensorium / Orientation: awake and alert Motor Exam: strength 5/5 throughout Skin no rashes or lesions noted and no wounds MDM MDM MDM Narrative Medical decision making narrative: Patient's lungs are clear. He is not anaphylactic. He is hypertensive, we will recheck that. His other vital signs are normal. I do not think he needs steroids, he probably just needs to be away from this strip cleaner. I advised him to use albuterol MDI and Benadryl as needed, he is amenable to that and agrees he does not require them at this time. Discharge Plan Triage Chief Complaint: Allergic Reaction ED Provider: Meek Ruelas Dx/Rx/DC Orders Clinical Impression: Allergic reaction to chemical substance Instructions: ED General Allergic Reactions Prescriptions: No Action albuterol 90 mcg/actuation aerosol inhaler 90 mcg/actuation aerosol 1 puff INHALATION PRN PRN (Reason: Asthma) RF: 0 budesonide-formoterol 160-4.5 mcg/actuation HFA aerosol inhaler 2 inh INHALATION BID RF: 0 Primary Care Provider: Alex Masters Referrals: [facility] [GROUP OF PHYSICIANS] - 1 Day for another exam Alex Masters MD [Primary Care Provider] - Activity Restrictions/Additional Instructions: Benadryl and albuterol inhaler as needed for symptoms Disposition Disposition: Home, Self Care
[2021-11-15 11:25] VITALS: BP 143/95
--- NOTE | 2021-11-15 11:26 | ED.RN ---
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 PT INFORMED TO GO STRAIGHT TO THE NOW CLINIC TO OBTAIN DRUG SCREEN FOR WORKERS COMP PROCESS. PT AGREEABLE.
== END 2021-11-15 11:50 | disposition home or self-care (01) ==
LOC: ED 11:48
PROVIDERS: Emergency Provider Emergency Medicine; PCP Family Medicine; Visit Provider Emergency Medicine
DX: T78.49XA Other allergy, initial encounter (principal); X58.XXXA Exposure to other specified factors, initial encounter; Z79.899 Other long term (current) drug therapy
CPT/HCPCS: 99282

== ENCOUNTER 2022-10-14 16:52 | Emergency (ER) | payer OTHER, MEDICAID, SELFPAY ==
[2022-10-14 16:53] VITALS: BP 162/111; PULSE 100; RESP 16; TEMP 36.6; O2SAT 100; BMI 29.0
--- NOTE | 2022-10-14 17:51 | EDS_ITS ---
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 He states that the exposure caused a flare up in his asthma and he is using his inhaler more often than usual. He states he also developed a little bit of tunnel vision yesterday morning when he was exposed to it however this has resolved. Patient was also here on 11/15/21 after being exposed to this industrial sweeper cleaner. Patient stated he was a little bit short of breath yesterday after the exposure. He denies chest pain, rash, and swelling of the lips and tongue. PFSH <SURAJ Kearney - Last Filed: 10/14/22 21:32> PFSH Medical History Asthma Contact with and (suspected) exposure to other viral communicable diseases Seasonal allergies Home Medications budesonide-formoterol HFA 160 mcg-4.5 mcg/actuation aerosol inhaler 2 puff inhalation BID 12/11/20 [History Last Taken Unknown] albuterol sulfate 90 mcg/actuation aerosol inhaler (Ventolin HFA) 2 puff inhalation Q4H PRN PRN sob 10/14/22 [History Last Taken Unknown] Allergy/AdvReac Type Severity Reaction Status Date / Time tramadol Allergy Shortness Verified 10/14/22 16:52 of breath Family History Father Heart disease Surgical History S/P tube myringotomy S/P ventral herniorrhaphy Social History Smoking Status: Never smoker alcohol intake: never ROS <SURAJ Kearney - Last Filed: 10/14/22 21:32> ROS ED Constitutional Constitutional ED: Denies chills, fever(s) or sweats Eyes Eyes: Denies blurry vision, change in vision or diplopia ENT ENT ED: Denies rhinorrhea or sore throat Cardiovascular Cardiovascular: Denies chest pain, palpitations or racing heartbeat Respiratory/Chest Respiratory/Chest: Reports shortness of breath with exertion and wheezing; Denies cough Gastrointestinal Gastrointestinal: Denies abdominal pain, diarrhea, nausea or vomiting Genitourinary Genitourinary ED: Denies dysuria or hematuria Musculoskeletal Musculoskeletal: Denies back pain, myalgias or neck pain Integumentary Denies abscess, Abrasions or rash Neurologic Neurologic: Denies headache(s), paresthesias or weakness Psychiatric Psychiatric: Denies anxiety, depression or suicidal ideation Allergic/Immunologic Allergic/Immunologic ED: Denies mouth swelling, tongue swelling or urticaria EXAM <SURAJ Kearney - Last Filed: 10/14/22 21:32> Physical Exam Const Vital Signs: 10/14/22 16:53 10/14/22 17:53 10/14/22 17:53 Temperature 97.8 F Temperature Source Temporal Pulse Rate 100 80 Respiratory Rate 16 17 Respiratory Effort Normal Non-Labored Respiratory Depth Normal Respiratory Pattern Normal Blood Pressure 162/111 H 143/86 H Blood Pressure Mean 128 105 Pulse Ox 100 96 Oxygen Delivery Method Room Air Room Air Room Air 10/14/22 18:19 Temperature Temperature Source Pulse Rate 82 Respiratory Rate 17 Respiratory Effort Respiratory Depth Respiratory Pattern Blood Pressure Blood Pressure Mean Pulse Ox 95 Oxygen Delivery Method Positive well nourished and well developed General Appearance ED: well developed and NAD HEENT Reports moist mucous membranes Negative for trauma or tenderness Eyes PERRL and EOMs intact bilaterally Neck no lymphadenopathy and supple Chest Wall inspection of chest normal and palpation of chest normal Resp normal respiratory effort and clear to auscultation bilaterally Cardio regular rate and regular rhythm GI non-tender, non-distended and no masses Palpation: soft Extremity normal to inspection General Extremety ED: Negative for edema or tenderness General Extremity: Negative for edema Neuro oriented x3, CN's II-XII intact bilaterally and no sensory deficits noted Sensorium / Orientation: alert Motor Exam: strength 5/5 throughout Psych mental status grossly normal Skin no rashes or lesions noted, no wounds and skin turgor normal <Dr. Sanchez Howard MD - Last Filed: 10/14/22 18:13> Physical Exam Const Vital Signs: 10/14/22 16:53 10/14/22 17:53 10/14/22 17:53 Temperature 97.8 F Temperature Source Temporal Pulse Rate 100 80 Respiratory Rate 16 17 Respiratory Effort Normal Non-Labored Respiratory Depth Normal Respiratory Pattern Normal Blood Pressure 162/111 H 143/86 H Blood Pressure Mean 128 105 Pulse Ox 100 96 Oxygen Delivery Method Room Air Room Air Room Air 10/14/22 18:19 Temperature Temperature Source Pulse Rate 82 Respiratory Rate 17 Respiratory Effort Respiratory Depth Respiratory Pattern Blood Pressure Blood Pressure Mean Pulse Ox 95 Oxygen Delivery Method [facility] <SURAJ Kearney - Last Filed: 10/14/22 21:32> [facility] Narrative Medical decision making narrative: Patient's lungs sound clear bilaterally here in the ED. Patient's oxygen saturation has remained above 95%. Patient is in no respiratory distress. I do not think a chest x-ray is necessary. I am comfortable with patient discharging home with his albuterol inhaler when needed. Patient is comfortable with plan. I have personally performed a face to face assessment of the patient and have reviewed the SLIME Note. I performed a substantive portion of the visit including all aspects of the following. My ochoa findings include: History is [41-year-old male exposed to chemicals at work and wheezing. He has a history of asthma. 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 Vital signs stable afebrile. Pulse ox 9% on room air. H EENT exam unremarkable. Neck nontender. Lungs are clear equal symmetrical bilaterally. No rales rhonchi or wheezing. Heart regular rate and rhythm no murmur. Abdomen soft nontender. Moving all 4 extremities. Calves are nontender without edema.] Medical Decision Making [Worker's Comp. Asthma flare due to a chemical pneumonitis due to chemicals Bing at work. He is not wheezing he does not need steroids. He will use his inhaler and discharged home. Avoid chemical.] Other additions or changes: [None] <Dr. Sanchez Howard MD - Last Filed: 10/14/22 18:13> [facility] Narrative Medical decision making narrative: Patient's lungs sound clear bilaterally here in the ED. Patient's oxygen saturation has remained above 95%. Patient is in no respiratory distress. I do not think a chest x-ray is necessary. I am comfortable with patient discharging home and his albuterol inhaler when needed. Patient is comfortable with plan. I have personally performed a face to face assessment of the patient and have reviewed the SLIME Note. I performed a substantive portion of the visit including all aspects of the following. My ochoa findings include: History is [41-year-old male exposed to chemicals at work and wheezing. He has a history of asthma. 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 Vital signs stable afebrile. Pulse ox 9% on room air. H EENT exam unremarkable. Neck nontender. Lungs are clear equal symmetrical bilaterally. No rales rhonchi or wheezing. Heart regular rate and rhythm no murmur. Abdomen soft nontender. Moving all 4 extremities. Calves are nontender without edema.] Medical Decision Making [Worker's Comp. Asthma flare due to a chemical pneumonitis due to chemicals Bing at work. He is not wheezing he does not need steroids. He will use his inhaler and discharged home. Avoid chemical.] Other additions or changes: [None] Discharge Plan Triage Chief Complaint: Asthma ED Midlevel Provider: Nydia Perez ED Provider: Sanchez Howard Dx/Rx/DC Orders Clinical Impression: Asthma exacerbation, mild, Exposure to chemical inhalation, Encounter related to worker's compensation claim Instructions: ED Asthma, Acute (Adult) Prescriptions: No Action budesonide-formoterol 160-4.5 mcg/actuation HFA aerosol inhaler 2 puff INHALATION BID albuterol sulfate [Ventolin HFA] 90 mcg/actuation HFA aerosol inhaler 2 puff INHALATION Q4H PRN PRN (Reason: sob) Label Comments: INHALE 2 PUFFS BY MOUTH EVERY 4 TO 6 HOURS DIRECTED Primary Care Provider: Alex Masters Referrals: Alex Masters MD [Primary Care Provider] - 5-7 Days Activity Restrictions/Additional Instructions: Follow-up with PCP as needed. Please return if symptoms worsen. Disposition Disposition: Home, Self Care Discharge Date/Time: 10/14/22 18:20
[2022-10-14 17:53] VITALS: BP 143/86; PULSE 80; RESP 17; O2SAT 96
[2022-10-14 18:19] VITALS: PULSE 82; RESP 17; O2SAT 95
== END 2022-10-14 18:20 | disposition home or self-care (01) ==
LOC: ED 18:08
PROVIDERS: Emergency Provider Emergency Medicine; PCP Family Medicine; Visit Provider Emergency Medicine
DX: J45.901 Unspecified asthma with (acute) exacerbation (principal)
CPT/HCPCS: 99282

== ENCOUNTER 2025-06-20 09:29 | Emergency (ER) | payer MEDICAID, SELFPAY ==
[2025-06-20 09:30] VITALS: BP 143/106; PULSE 71; RESP 16; TEMP 36.4; O2SAT 98; BMI 28.8
--- NOTE | 2025-06-20 10:16 | EKG12_ITS ---
Test Reason : UPPER ABD PAIN Blood Pressure : */* mmHG Vent. Rate : 63 BPM Atrial Rate : 63 BPM P-R Int : 206 ms QRS Dur : 78 ms QT Int : 384 ms P-R-T Axes : 43 23 25 degrees QTcB Int : 392 ms Normal sinus rhythm Septal infarct , age undetermined Abnormal ECG Confirmed by LUCY BUITRAGO MD ([id number]), online content editor DOMENICA MURRAY ([id number]) on 06/21/2025 8:46:04 AM Referred By: Confirmed By: LUCY BUITRAGO MD
--- NOTE | 2025-06-20 10:16 | CT_ITS ---
PROCEDURE: ABDOMEN/PELVIS WITHOUT CONT 06/20/2025 REASON FOR EXAM: Right upper quadrant and back pain. Worsening pain. TECHNIQUE: ABDOMEN/PELVIS WITHOUT CONT Noncontrast technique limits evaluation of the abdominal and pelvic viscera. Coronal and Sagittal reconstruction series were provided. One or more dose reduction techniques were used (e.g., Automated exposure control, adjustment of the mA and/or kV according to patient size, use of iterative reconstruction technique). RADIATION DOSE SUMMARY: CTDlvol: 11.55 mGy DLP: 675.46 mGycm COMPARISON: None FINDINGS: Lung bases: Minimal linear scarring and/or atelectasis at the left lung base. Liver: Normal size. No obvious mass. Gallbladder: Unremarkable Spleen: Normal size. Pancreas: Normal size. No surrounding inflammation. Adrenals: Unremarkable Kidneys: No urolithiasis. No hydronephrosis. Bladder: Unremarkable Bowel: Colonic diverticulosis without diverticulitis. Appendix: Unremarkable Lymph nodes: Unremarkable. Vasculature: The abdominal aorta and IVC contours are normal. Noncontrast technique limits evaluation. Scattered calcific plaques of the abdominal aorta. Peritoneum / Retroperitoneum: Unremarkable Bones: Unremarkable CT/Abdomen/Pelvis without Cont IMPRESSION: Scattered sigmoid diverticulosis. No radiographic evidence of diverticulitis. Reading Location: [facility]
--- NOTE | 2025-06-20 10:17 | ED.VIS.GI ---
HPI HPI - GI History of Present Illness Chief Complaint: Abd Pain Informant: patient Narrative Narrative: Patient is a 44-year-old male with history of asthma as well as ventral hernia repair (with mesh) presenting with right upper quadrant abdominal pain that raise to his back and slightly to suprapubic region. States started yesterday when he was fishing. He woke up yesterday he was feeling a little off and had some mild discomfort in his right upper quadrant did not think much of it. Became much more severe while fishing. Denies any injury. Did take 2 ibuprofen yesterday with minimal relief. Does have some associated nausea. Denies any urinary. Denies any correlation with the pain and eating/drinking. Notes he has not much appetite however. No fever or chills reported. Denies any chest pain. No stable tightness in for like his asthma was may be flaring up last night on the right side. No history of any cardiac disease. No other complaints or concerns at this time. [facility] Medical History Contact with and (suspected) exposure to other viral communicable diseases Seasonal allergies Asthma Home Medications ?Medication ?Instructions ?Recorded ?Last Taken ?Type albuterol sulfate 90 mcg/actuation 2 puff inhalation Q4H PRN PRN sob 10/14/22 Unknown History aerosol inhaler (Ventolin HFA) montelukast 10 mg tablet 4 mg PO DAILY 06/20/25 Unknown History (Singulair) omeprazole 20 mg capsule,delayed 20 mg PO DAILY #30 CAPSULES 06/20/25 Unknown Rx release ondansetron 4 mg disintegrating 4 mg PO Q8H PRN PRN Nausea #10 tabs 06/20/25 Unknown Rx tablet Allergy/AdvReac Type Severity Reaction Status Date / Time tramadol Allergy Shortness Verified 06/20/25 09:30 of breath Family History Father Heart disease Surgical History S/P ventral herniorrhaphy S/P tube myringotomy Social History Smoking Status: Never smoker alcohol intake: never ROS ROS ED Constitutional Constitutional ED: Denies chills or fever(s) Cardiovascular Cardiovascular: Denies chest pain Respiratory/Chest Respiratory/Chest: Reports dyspnea and other Details: Mild shortness of breath associate with asthma last night, none currently ; Denies cough Gastrointestinal Gastrointestinal: Reports abdominal pain and nausea; Denies constipation, diarrhea or vomiting Genitourinary Genitourinary ED: Denies dysuria, hematuria or urinary frequency Musculoskeletal Musculoskeletal: Reports back pain and other Details: Right flank pain ; Denies arthralgias or myalgias Integumentary Denies rash Neurologic Neurologic: Denies paresthesias or weakness EXAM Physical Exam Const Vital Signs: 06/20/25 09:30 06/20/25 12:02 06/20/25 14:00 Temperature 97.5 F L Temperature Source Oral Pulse Rate 71 65 79 Respiratory Rate 16 14 16 Blood Pressure 143/106 H 121/81 H 126/78 H Blood Pressure Mean 118 94 94 Pulse Ox 98 98 99 Oxygen Delivery Method Room Air Room Air Room Air Positive well nourished and well developed General Appearance ED: well developed; Negative for pallor HEENT normocephalic and atraumatic Neck supple Resp normal respiratory effort and clear to auscultation bilaterally Cardio regular rate and regular rhythm GI non-tender and non-distended GI Narrative: Negative Queen sign, no pain McBurney's point. Auscultation: normoactive bowel sounds Palpation: soft; Negative for tender, guarding, rigid or mass Back/Spine no CVA tenderness Back/Spine Narrative: Points to his right flank as area of pain is not reproducible. Extremity full ROM Neuro Sensorium / Orientation: alert, oriented to person, oriented to place and oriented to time Motor Exam: Negative for general weakness Psych mental status grossly normal and thought process normal Skin no wounds General Skin Exam: Negative for jaundice or pallor MDM MDM MDM Narrative Medical decision making narrative: Patient evaluated for right upper quadrant pain that radiates to his back is also having some lower abdominal pain. Vital signs unremarkable in the emergency room. Differential includes renal colic, pyelonephritis from his lower suspicion given no reported fever), biliary colic (lower suspicion is not reporting a lot of symptoms associated with eating), gas pains, peptic ulcer disease, pneumonia and bowel obstruction. Patient given IV Toradol, fluids and Zofran with minimal symptom improvement. CBC normal. CMP shows elevation of his glucose of 177 (patient reports that he is prediabetic) and urinalysis is normal. CT of the abdomen pelvis without contrast shows scattered sigmoid diverticulosis but no evidence of acute diverticulitis or any other acute process. Patient is reevaluated. Still concerned about the cause of his symptoms. 2 view chest x-ray indicates this is referred pulmonary pain (he is PE RC negative I do not think requires a D-dimer) and right upper quadrant ultrasound for possible cholecystitis/biliary colic that was not picked up on CT. EKG is normal low sufficient for referred ACS symptoms. Chest x-ray reviewed by myself as well as radiology does not show acute process. Right upper quadrant ultrasound shows fatty obstruction of the liver with borderline hepatomegaly but no evidence of gallstones. Patient is then given a GI cocktail with further improvement of his pain. Will be discharged home on a course of PPI and given referral for GI as I suspect his pain is more GI in nature with differential including gastritis, peptic ulcer disease or H. pylori. Return Precautions. Discharged Home in Stable Condition. Lab Data Attestation: I reviewed the patient's lab results. Labs: Laboratory Results - last 24 hr 06/20/25 06/20/25 09:40 11:39 WBC 5.5 RBC 5.51 Hgb 15.8 Hct 46.6 MCV 84.6 MCH 28.7 MCHC 33.9 RDW Std Deviation 39.0 RDW Coeff of Selam 12.6 Plt Count 254 MPV 10.7 Immature Gran % (Auto) 0.500 Neut % (Auto) 57.3 Lymph % (Auto) 30.1 [place] % (Auto) 9.6 Eos % (Auto) 1.4 Baso % (Auto) 1.1 H Absolute Neuts (auto) 3.2 Absolute Lymphs (auto) 1.66 Nucleated RBC % 0 Sodium 139 Potassium 4.4 Chloride 101 Carbon Dioxide 25.6 Anion Gap 12 BUN 16 Creatinine 0.71 Estim Creat Clear Calc 163.34 Est GFR (MDRD) Non-Af 118 BUN/Creatinine Ratio 23.1 H Glucose 177 H Calcium 9.8 Total Bilirubin 0.62 AST 25 ALT 32 Alkaline Phosphatase 69 Total Protein 7.5 Albumin 4.7 Globulin 2.9 Albumin/Globulin Ratio 1.6 Urine Color Yellow Urine Clarity Clear Urine pH 6.0 Ur Specific [place] 1.015 Urine Protein 15 H Urine Glucose (UA) Normal Urine Ketones Negative Urine Occult Blood Negative Urine Nitrite Negative Urine Bilirubin Negative Urine Urobilinogen Normal Ur Leukocyte Esterase Negative Urine RBC 0 SEEN Urine WBC 0 SEEN Ur Squamous Epith Cells 0 SEEN Urine Bacteria 0 SEEN Urine Mucus 0 SEEN Radiography Diagnostic Testing: Clinical Impression(s) from Imaging Studies Abdomen/Pelvis CT 06/20/25 10:16 IMPRESSION: Scattered sigmoid diverticulosis. No radiographic evidence of diverticulitis. Reading Location: [id number] Abdomen Ultrasound 06/20/25 12:31 IMPRESSION: Fatty infiltration of the liver. Borderline hepatomegaly. No evidence of gallstones. Reading Location: [id number] Rhythm Strip Rhythm Strip: Sinus Rhythm Rate: 63 Ectopy: None EKG Initial EKG: Attestation: I personally reviewed and interpreted this EKG as follows: Interpretation: Sinus Rhythm Comments: Normal sinus rhythm rate of 63 bpm Normal axis Normal intervals Normal ST segments Compared to prior EKG on 03/12/2021, no acute changes Discharge Plan Triage Chief Complaint: Abd Pain ED Provider: Latasha Wakefield Dx/Rx/DC Orders Clinical Impression: Abdominal pain, RUQ, Fatty liver, Nausea, Acute right flank pain Instructions: ED Abdominal Pain Excl Appendx Male Prescriptions: New ondansetron 4 mg tablet,disintegrating 4 mg PO Q8H PRN PRN (Reason: Nausea) Qty: 10 0RF omeprazole 20 mg capsule,delayed release(DR/EC) 20 mg PO DAILY Qty: 30 0RF No Action albuterol sulfate [Ventolin HFA] 90 mcg/actuation HFA aerosol inhaler 2 puff INHALATION Q4H PRN PRN (Reason: sob) Patient Comments: INHALE 2 PUFFS BY MOUTH EVERY 4 TO 6 HOURS DIRECTED montelukast [Singulair] 10 mg tablet 4 mg PO DAILY Primary Care Provider: Larissa Donnelly Referrals: Merlin Armenta DO [Med Staff - Active Staff] - Larissa Donnelly, VP DIRECTOR OF FINANCE-C [Primary Care Provider] - Activity Restrictions/Additional Instructions: Your lab work today was largely normal and reassuring. Your imaging showed some findings of fatty liver but otherwise was largely normal. You did seem to have the most improvement with stomach medicine (GI cocktail). Possibly could have some irritation of your stomach or stomach ulcer. Will start you on an antacid for this. If you develop worsening symptoms please return to the emergency room. Otherwise please follow-up with GI specialist. Avoid taking NSAIDs such as ibuprofen, highly acidic foods or black coffee as this can irritate the stomach more. Tylenol safe to take for pain. Print Language: [place] Islander Disposition Disposition: Home, Self Care
[2025-06-20] MEDS: 0.9% Normal Saline (1000mL) 1,000 ML 999 ML IV (10:23)
[2025-06-20 10:27] LABS: Hematocrit 46.6 % (40-54); Hemoglobin 15.8 g/dL (13.0-16.5); Immature Granulocytes Count 0.030 X10^3/uL (0.0-0.0); Mean Corp Hgb Conc 33.9 g/dL (32-36); Mean Corpuscular Volume 84.6 fL (80-94); Mean Platelet Vol. 10.7 fl (6.2-12.0); NRBC Flagged by Analyzer 0 % (0-5); Platelet Count 254 K/mm3 (150-450); RBC Distribution Width CV 12.6 % (11.6-14.6); RBC Distribution Width SD 39.0 fl (35.1-43.9); Red Blood Count 5.51 M/mm3 (4.6-6.2); White Blood Count 5.5 K/mm3 (4.4-11.0)
[2025-06-20 11:14] LABS: AST(SGOT) 25 U/L (<=37); Alanine Aminotransfer ALT/SGPT 32 U/L (<=46); Albumin, Serum 4.7 g/dL (3.5-5.0); Alkaline Phosphatase 69 U/L (40-129); Anion Gap 12 (5-15); BUN 16 mg/dL (4-19); BUN/Creat Ratio 23.1 RATIO (10-20); Calcium,Total 9.8 mg/dL (7.6-11.0); Carbon Dioxide 25.6 mmol/L (21.0-32.0); Chloride 101 mmol/L (98-108); Estimated Creatinine Clearance 163.34 ml/min (50-250); Globulin 2.9 g/dL (2.2-4.2); Glucose 177 mg/dL (70-99); Potassium 4.4 mmol/L (3.3-5.1)
[2025-06-20 11:43] LABS: Mucous, Urine 0 SEEN /hpf (<or=2+); Red Blood Cells-Urine 0 SEEN /hpf (0-5); Squamous Epithelial Cells - UA 0 SEEN /hpf (0-5)
[2025-06-20 11:45] LABS: Color, Urine Yellow (Yellow); Glucose, Dipstick Normal (Normal); Ketone-Dipstick Negative (Negative); Leukocyte Esterase-Dipstick Negative /ul (Negative); Nitrite-Dipstick Negative (Negative); Occult Blood-Urine Negative /ul (Negative); Protein-Dipstick 15 mg/dl (Negative); Specific Gravity, Urine 1.015 (1.002-1.030); Urine Bilirubin Dipstick Negative (Negative)
[2025-06-20 12:02] VITALS: BP 121/81; PULSE 65; RESP 14; O2SAT 98
--- NOTE | 2025-06-20 12:31 | US_ITS ---
PROCEDURE: GALLBLADDER N/A REASON FOR EXAM: RUQ ABD PAIN COMPARISON: Prior CT scan of the abdomen and pelvis done earlier in the day. FINDINGS: Liver: Diffusely echogenic suggesting fatty infiltration. The liver measures 17.4 cm. Gallbladder: No stones, sludge, wall thickening or tenderness. Gallbladder wall measures 2.8 mm. Common bile duct: Normal measuring 3.9 mm . Pancreas: Obscured by bowel gas. Other: Visualized portions of the right kidney are unremarkable. No right upper quadrant ascites. US/Abdomen Limited IMPRESSION: Fatty infiltration of the liver. Borderline hepatomegaly. No evidence of gallstones. Reading Location: [id number]
--- NOTE | 2025-06-20 12:32 | RAD_ITS ---
PROCEDURE: CHEST PA AND LATERAL 06/20/2025 REASON FOR EXAM: SOB, RUQ PAIN TECHNIQUE: CHEST PA AND LATERAL COMPARISON: 01/10/2021 FINDINGS: Hardware: None. Heart: The heart size is normal. Mediastinum: The mediastinal contour is unremarkable. Lungs: The lungs are clear. Bones: The bones are unremarkable. RAD/Chest PA and Lateral IMPRESSION: NO ACUTE FINDINGS. Reading Location: [facility]
[2025-06-20 14:00] VITALS: BP 126/78; PULSE 79; RESP 16; O2SAT 99
[2025-06-20] MEDS: Lidocaine 2% Viscous15 ML UDC 15 ML PO (15:22)
[2025-06-20 15:59] VITALS: BP 129/79; PULSE 80; RESP 16; TEMP 36.6; O2SAT 99
== END 2025-06-20 16:04 | disposition home or self-care (01) ==
PROVIDERS: Emergency Provider Emergency Medicine; PCP Nurse Practitioner Family; Visit Provider Emergency Medicine
DX: R10.11 Right upper quadrant pain (principal); K76.0 Fatty (change of) liver, not elsewhere classified; R11.0 Nausea
CPT/HCPCS: 71046; 74176; 76705; 80053; 81001; 85025; 93005; 96361; 96374; 96375; 99284; J2405